=== PATIENT | male | born 1985 ===

== ENCOUNTER 2018-09-04 08:52 | Emergency (ER) | payer OTHER ==
[2018-09-04 09:10] VITALS: BP 120/58; PULSE 56; RESP 18; TEMP 97; O2SAT 98
--- NOTE | 2018-09-04 09:34 | ED PDOC ---
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 As per patient left upper chest pain started 3 days ago, progressively getting worse, comes and goes, sharp, radiates to left arm, 7/10 in severity, no alleviating or aggravating factors. denies any SOB, cough, hemoptysis, dizziness, palpitations, blurred vision, or LEs pain. PMH: Denies PSH: Denies Allg: NKDA Meds: None FH: No cardiac disease SH: Social alcohol, no smoking or drug use ROS: As per HPI <Keron Kumar - Last Filed: 09/04/18 12:57> Time Seen by Provider: 09/04/18 09:08 Chief Complaint (Nursing): Chest Pain Supervising Attending Note - Attestation: I have personally seen and examined this patient.: Yes I have fully participated in the care of the patient.: Yes I have reviewed all pertinent clinical information: Yes - Notes: Notes:: pt seen and examined, labs and EKG reviewed and CXR report reviewed Labs unremarkable, trop neg, DDimer WNL HEART score 1 Vitals normal Recommend outpatient workup and further testing via [facility]. Rx naprosyn. Avoid heavy exertion until sees clinic. <Miguelito Aviles III - Last Filed: 09/04/18 12:00> Past Medical History Vital Signs: Last Vital Signs Temp 97 F L 09/04/18 09:07 Pulse 56 L 09/04/18 09:07 Resp 18 09/04/18 09:07 BP 120/58 L 09/04/18 09:07 Pulse Ox 98 09/04/18 11:05 <Miguelito Aviles III - Last Filed: 09/04/18 12:00> Vital Signs: Last Vital Signs Temp 97 F L 09/04/18 09:07 Pulse 56 L 09/04/18 09:07 Resp 18 09/04/18 09:07 BP 120/58 L 09/04/18 09:07 Pulse Ox 98 09/04/18 09:07 - Family History Family History: States: Unknown Family Hx <Linden Kumarvelasquez - Last Filed: 09/04/18 12:57> - Home Medications Home Medications: Ambulatory Orders Medication Instructions Recorded Naproxen 500 mg PO BID PRN #20 tab 06/22/15 Sulfamethoxazole/Trimethopri 1 tab PO BID #20 tab 06/22/15 [Bactrim Ds 800 mg-160 mg] traMADol [Ultram] 50 mg PO Q6H PRN #20 tab 06/22/15 Naproxen [Naprosyn] 500 mg PO BID PRN #14 tablet 09/04/18 - Allergies Allergies/Adverse Reactions: Allergies Allergy/AdvReac Type Severity Reaction Status Date / Time No Known Allergies Allergy Verified 09/04/18 09:07 MICHELE Risk Score for UA/NSTEMI - MICHELE Risk Score Age > 64: NO 3 or more CAD Risk Factors: NO Known CAD (Stenosis greater than 50%): NO Aspirin use in past 7 days: NO Severe Angina: NO EKG ST changes greater than 0.5mm: NO Positive Cardiac Marker: NO MICHELE Score: 0 Risk %: 5% <Linden Kumarvelasquez - Last Filed: 09/04/18 12:57> Curb-65 Severity Score - CURB-65 Severity Score Confusion: No Respiratory Rate greater than/equal to 30: No Systolic BP <90 or Diastolic BP less than/equal 60mmHg: No Age >64: No Curb-65 Score: 0 Percentage 30-day mortality: 0.6% <Linden Kumarvelasquez - Last Filed: 09/04/18 12:57> Wells Criteria for PE - Wells Criteria for Pulmonary Embolism P.E is #1 Diagnosis, or Equally Likely: No Heart Rate >100: No Immobilization at least 3 days;Surgery previous 4 weeks: No Previous, objectively diagnosed PE or DVT: No Hemoptysis: No Malignancy w/treatment within 6 months, or palliative: No Total Score: 0 <KumarKeron - Last Filed: 09/04/18 12:57> Review of Systems Constitutional: Negative for: Fever Eyes: Negative for: Pain ENT: Negative for: Ear Pain, Ear Discharge Cardiovascular: Negative for: Chest Pain, Palpitations, Orthopnea Respiratory: Negative for: Cough, Shortness of Breath, SOB with Exertion, Pleuritic Pain Gastrointestinal: Negative for: Nausea, Vomiting, Abdominal Pain, Diarrhea Genitourinary Male: Negative for: Dysuria, Frequency, Incontinence Musculoskeletal: Negative for: Neck Pain, Shoulder Pain Skin: Negative for: Rash Neurological: Negative for: Weakness, Numbness, Incoordination Psych: Negative for: Anxiety <Keron Kumar - Last Filed: 09/04/18 12:57> Physical Exam - Physical Exam Appears: Positive for: No Acute Distress Head Exam: Positive for: NORMAL INSPECTION Skin: Positive for: Normal Color, Warm, Dry. Negative for: Diaphoresis Eye Exam: Positive for: Normal appearance, EOMI, PERRL ENT: Positive for: Normal ENT Inspection Neck: Positive for: Normal, Painless ROM, Supple Cardiovascular/Chest: Positive for: Regular Rate, Rhythm, Other (No pain with active or passive left arm movement ). Negative for: Chest Non Tender, Edema, JVD, Murmur, Bradycardia, Tachycardia Respiratory: Positive for: Normal Breath Sounds. Negative for: Decreased Breath Sounds, Accessory Muscle Use, Crackles Gastrointestinal/Abdominal: Positive for: Normal Exam, Bowel Sounds, Soft. Negative for: Tenderness Back: Positive for: Normal Inspection. Negative for: L CVA Tenderness, R CVA Tenderness Extremity: Positive for: Normal ROM. 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 <Keron Kumar - Last Filed: 09/04/18 12:57> - Laboratory Results Result Diagrams: 09/04/18 09:38 09/04/18 09:38 Lab Results: PT 11.8 Seconds (9.8-13.1) 09/04/18 09:38 INR 1.0 09/04/18 09:38 APTT 28.8 Seconds (25.6-37.1) 09/04/18 09:38 D-Dimer, Quantitative < 200 ng/mlDDU (0-230) 09/04/18 09:38 NT-Pro-B Natriuret Pep 32.7 pg/ml (0-450) 09/04/18 09:38 Total Bilirubin 0.6 mg/dl (0.2-1.3) 09/04/18 09:38 AST 29 U/L (17-59) 09/04/18 09:38 ALT 44 U/L (21-72) 09/04/18 09:38 Alkaline Phosphatase 103 U/L (38-126) 09/04/18 09:38 Total Protein 7.5 G/DL (6.3-8.2) 09/04/18 09:38 Albumin 4.3 g/dL (3.5-5.0) 09/04/18 09:38 Globulin 3.2 gm/dL (2.2-3.9) 09/04/18 09:38 Albumin/Globulin Ratio 1.3 (1.0-2.1) 09/04/18 09:38 Urine Color Yellow (YELLOW) 09/04/18 09:38 Urine Clarity Clear (Clear) 09/04/18 09:38 Urine pH 7.0 (5.0-8.0) 09/04/18 09:38 Ur Specific [place] 1.016 (1.003-1.030) 09/04/18 09:38 Urine Protein Negative mg/dL (NEGATIVE) 09/04/18 09:38 Urine Glucose (UA) Neg mg/dL (NEGATIVE) 09/04/18 09:38 Urine Ketones Negative mg/dL (NEGATIVE) 09/04/18 09:38 Urine Blood Negative (NEGATIVE) 09/04/18 09:38 Urine Nitrate Negative (NEGATIVE) 09/04/18 09:38 Urine Bilirubin Negative (NEGATIVE) 09/04/18 09:38 Urine Urobilinogen 0.2-1.0 mg/dL (0.2-1.0) 09/04/18 09:38 Ur Leukocyte Esterase Neg Tip/uL (Negative) 09/04/18 09:38 Urine RBC (Auto) 1 /hpf (0-3) 09/04/18 09:38 <Miguelito Aviles III - Last Filed: 09/04/18 12:00> - Laboratory Results Result Diagrams: 09/04/18 09:38 09/04/18 09:38 - ECG O2 Sat by Pulse Oximetry: 98 - Progress ED Course And Treament: A/P: 33 y/o male with left upper chest pain. - CBC, CMP, Coag, UA - EKG, CXR - Tylenol 650 stat Case discussed with Traci Chang Re-evaluation Time: 11:05 Condition: Re-examined <Keron Kumar - Last Filed: 09/04/18 12:57> Medical Decision Making Medical Decision Making: Chest pain <Keron Kumar - Last Filed: 09/04/18 12:57> Disposition - Disposition Disposition Time: 11:40 <Miguelito Aviles III - Last Filed: 09/04/18 12:00> - Disposition Disposition: Routine/Home <Keron Kumar - Last Filed: 09/04/18 12:57> - Clinical Impression Clinical Impression: Chest pain - Disposition Referrals: [facility] [Outside] Condition: STABLE Additional Instructions: Followup with clinic for further testing. Return to ER for any worse or new symptoms. Prescriptions: Naproxen [Naprosyn] 500 mg PO BID PRN #14 tablet PRN Reason: Pain, Moderate (4-7) Instructions: Chest Pain Forms: [facility] ([place]), [facility] School/Work Excuse
[2018-09-04 09:49] LABS: BASO % 0.4 % (0.0-2.0); EOS % 0.7 % (0.0-4.0); LYMPH # 1.4 K/uL (1.0-4.3); LYMPH % 26.9 % (20.0-40.0); MEAN CELL VOLUME 81.4 fl (80.0-94.0); MEAN CORPUSCULAR HEMOGLOBIN 27.2 pg (27.0-31.0); MEAN CORPUSCULAR HGB CONC 33.4 g/dL (33.0-37.0); MEAN PLATELET VOLUME 8.5 fl (7.2-11.7); MONO # 0.4 K/uL (0.0-0.8); MONO % 7.5 % (0.0-10.0); NEUT # 3.5 K/uL (1.8-7.0); NEUT % 64.5 % (50.0-75.0); NRBC % 0.1 % (0.0-0.0); RBC 4.8 Mil/uL (4.40-5.90); RED CELL DISTRIBUTION WIDTH 14.4 % (11.5-14.5); WHITE BLOOD COUNT 5.4 K/uL (4.8-10.8)
[2018-09-04 09:55] LABS: URINE BILIRUBIN NEGATIVE (NEGATIVE); URINE BLOOD NEGATIVE (NEGATIVE); URINE CLARITY CLEAR (Clear); URINE COLOR YELLOW (YELLOW); URINE GLUCOSE (UA) NEG (NEGATIVE); URINE LEUKOCYTE ESTERASE NEG Leu/uL (Negative); URINE PROTEIN NEGATIVE (NEGATIVE); URINE UROBILINOGEN 0.2-1.0 mg/dL (0.2-1.0)
[2018-09-04 09:59] LABS: ALB/GLOB RATIO 1.3 (1.0-2.1); ALBUMIN 4.3 g/dL (3.5-5.0); ALT/SGPT 44 U/L (21-72); AST/SGOT 29 U/L (17-59); BLOOD UREA NITROGEN 13 mg/dl (9-20); CALCIUM 9.8 mg/dL (8.4-10.2); GFR NON-AFRICAN AMERICAN > 60
[2018-09-04 10:01] LABS: PROTHROMBIN TIME 11.8 Seconds (9.8-13.1)
[2018-09-04 10:04] LABS: PARTIAL THROMBOPLASTIN TIME 28.8 Seconds (25.6-37.1)
[2018-09-04 10:08] LABS: B-TYPE NATRIURETIC PEPTIDE 32.7 pg/ml (0-450)
[2018-09-04 10:21] LABS: D DIMER < 200 ng/mlDDU (0-230)
--- NOTE | 2018-09-04 11:39 | RAD ---
Date of service: 09/04/2018 HISTORY: chest pain/ r/o infiltrate COMPARISON: No prior. TECHNIQUE: Chest PA and lateral FINDINGS: LUNGS: No active pulmonary disease. PLEURA: No significant pleural effusion identified. No pneumothorax apparent. CARDIOVASCULAR: No aortic atherosclerotic calcification present. Normal cardiac size. No pulmonary vascular congestion. OSSEOUS STRUCTURES: No significant abnormalities. VISUALIZED UPPER ABDOMEN: Normal. OTHER FINDINGS: None. IMPRESSION: No active disease.
--- NOTE | 2018-09-04 12:40 | CARD ---
APPROVED REPORT Date of service: 09/04/2018 EKG Measurement Heart [id number] <Conclusion> Sinus bradycardia Otherwise normal ECG
== END 2018-09-04 13:22 | disposition home or self-care (01) ==
LOC: H.ER 08:52
DX: R07.89 Other chest pain (principal)